=== PATIENT | male | born 1975 | race Caucasian/White ===

== ENCOUNTER 2021-08-15 08:06 | Emergency (ER) | payer OTHER ==
[~2021-08-15] VITALS: Ht 167.6 cm; Wt 85.7 kg
[~2021-08-15 08:06] MED LIST: CIPRO100 MG PO; KETO10TA2 PO; LEVSIN/SL0.125 MG SL; TAMS0.4C PO
[2021-08-15] MEDS ORDERED: ZITHROMAX500 MG PO (11:43)
[2021-08-15] MEDS ORDERED: TUSSI PRES-B L480 ML PO (11:43)
== END 2021-08-15 12:33 | disposition home or self-care (01) ==
LOC: ER 08:06
DX: B34.9 Viral infection, unspecified (principal); Z03.818 Encounter for observation for suspected exposure to other biological agents ruled out

== ENCOUNTER 2021-12-06 07:24 | Outpatient (CLI) | payer OTHER ==
[~2021-12-06 07:24] MED LIST changes: +TUSSI PRES-B L480 ML PO; +ZITHROMAX500 MG PO
== END 2021-12-06 07:35 | disposition home or self-care (01) ==
LOC: LAB 07:24
PROVIDERS: ATTEND Internal Medicine
DX: E55.9 Vitamin D deficiency, unspecified (principal); E78.2 Mixed hyperlipidemia; E63.9 Nutritional deficiency, unspecified

== ENCOUNTER 2022-01-26 10:46 | Outpatient (CLI) | payer OTHER | END 2022-01-26 10:53 | disposition home or self-care (01) | LOC: RAD 10:46 | PROVIDERS: ATTEND Physical Medicine & Rehabilitation | DX: M51.37 Other intervertebral disc degeneration, lumbosacral region (principal) ==

== ENCOUNTER 2022-03-03 04:21 | Emergency (ER) | payer OTHER ==
[~2022-03-03] VITALS: Ht 167.6 cm; Wt 81.6 kg
== END 2022-03-03 08:42 | disposition home or self-care (01) ==
LOC: ER 04:21
DX: U07.1 COVID-19 (principal); B34.9 Viral infection, unspecified

== ENCOUNTER 2022-04-13 06:26 | Outpatient (CLI) | payer OTHER | END 2022-04-13 06:27 | disposition home or self-care (01) | LOC: LAB 06:26 | PROVIDERS: ATTEND Internal Medicine | DX: D64.9 Anemia, unspecified (principal); E78.2 Mixed hyperlipidemia; E03.8 Other specified hypothyroidism; E11.9 Type 2 diabetes mellitus without complications; J40 Bronchitis, not specified as acute or chronic ==

== ENCOUNTER 2022-04-13 07:10 | Outpatient (CLI) | payer OTHER | END 2022-04-13 07:21 | disposition home or self-care (01) | LOC: SONOGRAMA 07:10 | PROVIDERS: ATTEND Internal Medicine | DX: R10.84 Generalized abdominal pain (principal) ==

== ENCOUNTER → 2022-08-10 | Emergency (ER) | payer OTHER ==
[~2022-08-10] VITALS: Ht 167.6 cm; Wt 81.6 kg
[~2022-08-10] MED LIST changes: +AMOX-CLAV 875-1 EACH PO
== END | disposition home or self-care (01) ==
LOC: ER 07:30
DX: B34.8 Other viral infections of unspecified site (principal); H10.9 Unspecified conjunctivitis; Z20.828 Contact with and (suspected) exposure to other viral communicable diseases

== ENCOUNTER 2022-09-24 07:00 | Emergency (ER) | payer OTHER ==
[~2022-09-24] VITALS: Ht 167.6 cm; Wt 81.6 kg
== END 2022-09-24 11:58 | disposition home or self-care (01) ==
LOC: ER 07:00
DX: R10.9 Unspecified abdominal pain (principal)

== ENCOUNTER 2022-10-05 06:12 | Outpatient (CLI) | payer OTHER | END 2022-10-05 09:15 | disposition home or self-care (01) | LOC: LAB 06:12 | DX: E78.2 Mixed hyperlipidemia (principal); E03.8 Other specified hypothyroidism; E11.9 Type 2 diabetes mellitus without complications; D64.9 Anemia, unspecified; C61 Malignant neoplasm of prostate ==

== ENCOUNTER 2023-04-07 06:23 | Outpatient (CLI) | payer OTHER | END 2023-04-07 06:25 | disposition home or self-care (01) | LOC: LAB 06:23 | PROVIDERS: ATTEND Internal Medicine | DX: D64.9 Anemia, unspecified (principal); C61 Malignant neoplasm of prostate; E78.2 Mixed hyperlipidemia; E03.8 Other specified hypothyroidism; E11.9 Type 2 diabetes mellitus without complications; N30.90 Cystitis, unspecified without hematuria ==

== ENCOUNTER 2023-10-13 19:35 | Emergency (ER) | payer OTHER ==
[~2023-10-13] VITALS: Ht 162.6 cm; Wt 83.9 kg
[2023-10-13] MEDS ORDERED: TAMS0.4C (19:50)
[2023-10-13 21:55] LABS: HEMATOCRIT 41.3 % (39.0-48.0); HEMOGLOBIN 14.3 g/dL (13-16.00); MEAN CELL VOLUME 87.7 fL (80.0-100.00); MEAN CORPUSCULAR HEMOGLOBIN 30.3 pg (27.00-32.0); MEAN CORPUSCULAR HGB CONC 34.5 g/dl (32.0-36.0); PLATELET COUNT 168 K/uL (150-450); RED BLOOD COUNT 4.71 M/uL (4.00-6.00); RED CELL DISTRIBUTION WIDTH 14.1 % (11.5-14.5)
== END 2023-10-13 22:25 | disposition home or self-care (01) ==
LOC: ER 19:36
DX: J06.9 Acute upper respiratory infection, unspecified (principal)

== ENCOUNTER 2023-12-03 06:12 | Outpatient (CLI) | payer OTHER ==
[~2023-12-03 06:12] MED LIST changes: +TAMS0.4C
[2023-12-03 07:35] LABS: PH,URINE 5.5 (5.0-8.0); URINE APPEARANCE Clear; URINE BILIRRUBIN Negative (NEGATIVE); URINE BLOOD Moderate; URINE COLOR Yellow; URINE GLUCOSE Negative (NEGATIVE); URINE LEUKOCYTE Negative; URINE NITRATE Negative; URINE PROTEIN Negative (NEGATIVE); URINE UROBILINOGEN 0.2 E.U./dl
[2023-12-03 07:39] LABS: URINE BACTERIA 23.9 uL (0.0-1933); URINE EPITHELIAL CELLS 4.3 uL (0.0-38.8); URINE RBC 44.9 uL (0.0-20.8); URINE WBC 7.7 uL (0.0-23.2)
[2023-12-03 07:39] LABS: HEMATOCRIT 42.8 % (39.0-48.0); HEMOGLOBIN 14.6 g/dL (13-16.00); MEAN CELL VOLUME 88.3 fL (80.0-100.00); MEAN CORPUSCULAR HEMOGLOBIN 30.2 pg (27.00-32.0); MEAN CORPUSCULAR HGB CONC 34.2 g/dl (32.0-36.0); PLATELET COUNT 180 K/uL (150-450); RED BLOOD COUNT 4.84 M/uL (4.00-6.00)
[2023-12-03 08:16] LABS: ALBUMIN 3.8 gm/dL (3.4-5.0); BILIRUBIN TOTAL 0.33 mg/dL (0.3-1.2); CHOL HDL RATIO 5.7 (0-5.0); CREATININE SERUM 0.91 mg/dL (0.70-1.30); GFR 88.92; GLOBULINA 3.1 G/DL (2.4-3.5); POTASSIUM 3.88 mEq/L (3.5-5.1); PROSTATIC SPECIFIC ANTIGEN 0.469 NG/ML (0.010-4.00); TOTAL PROTEIN 6.9 gm/dL (6.4-8.2); TSH 2.34 uIU/mL (0.358-3.74)
== END 2023-12-03 06:13 | disposition home or self-care (01) ==
LOC: LAB 06:12
PROVIDERS: ATTEND Internal Medicine
DX: C61 Malignant neoplasm of prostate (principal); E03.4 Atrophy of thyroid (acquired); E11.9 Type 2 diabetes mellitus without complications; D64.9 Anemia, unspecified

== ENCOUNTER 2024-01-22 08:09 | Emergency (ER) | payer OTHER ==
[~2024-01-22] VITALS: Ht 167.6 cm; Wt 81.6 kg
[2024-01-22 09:00] LABS: HEMATOCRIT 44.3 % (39.0-48.0); HEMOGLOBIN 15.2 g/dL (13-16.00); MEAN CELL VOLUME 87.1 fL (80.0-100.00); MEAN CORPUSCULAR HEMOGLOBIN 29.9 pg (27.00-32.0); MEAN CORPUSCULAR HGB CONC 34.4 g/dl (32.0-36.0); PLATELET COUNT 157 K/uL (150-450); RED BLOOD COUNT 5.09 M/uL (4.00-6.00); RED CELL DISTRIBUTION WIDTH 14.2 % (11.5-14.5)
[2024-01-22 09:24] LABS: ALBUMIN 4.1 gm/dL (3.4-5.0); BILIRUBIN TOTAL 0.7 mg/dL (0.3-1.2); CALCIUM 9.5 mg/dL (8.5-10.1); CREATININE SERUM 0.91 mg/dL (0.70-1.30); GFR 88.92; GLOBULINA 3.6 G/DL (2.4-3.5); POTASSIUM 4.11 mEq/L (3.5-5.1); TOTAL PROTEIN 7.7 gm/dL (6.4-8.2)
[2024-01-22 10:19] LABS: PH,URINE 6.5 (5.0-8.0); URINE APPEARANCE Clear; URINE BILIRRUBIN Negative (NEGATIVE); URINE BLOOD Moderate; URINE COLOR Yellow; URINE GLUCOSE Negative (NEGATIVE); URINE LEUKOCYTE Trace; URINE NITRATE Negative; URINE PROTEIN Negative (NEGATIVE)
[2024-01-22 10:24] LABS: URINE BACTERIA 26.4 uL (0.0-1933); URINE EPITHELIAL CELLS 2.4 uL (0.0-38.8); URINE RBC 77.6 uL (0.0-20.8); URINE WBC 3.3 uL (0.0-23.2)
[2024-01-22] MEDS ORDERED: CLINDAMYCIN PHOSPHATE 150 MG/ML (600mg) IV ONE (12:00)
== END 2024-01-22 14:29 | disposition home or self-care (01) ==
LOC: ER 08:10
PROVIDERS: Emergency Medicine
DX: L03.211 Cellulitis of face (principal)

== ENCOUNTER 2024-06-05 06:15 | Outpatient (CLI) | payer OTHER ==
[2024-06-05 07:13] LABS: HEMATOCRIT 44.8 % (39.0-48.0); HEMOGLOBIN 15.4 g/dL (13-16.00); MEAN CELL VOLUME 87.3 fL (80.0-100.00); MEAN CORPUSCULAR HGB CONC 34.4 g/dl (32.0-36.0); PLATELET COUNT 167 K/uL (150-450); RED BLOOD COUNT 5.13 M/uL (4.00-6.00); RED CELL DISTRIBUTION WIDTH 14.6 % (11.5-14.5)
[2024-06-05 07:21] LABS: URINE RBC 12.6 uL (0.0-20.8)
[2024-06-05 07:41] LABS: URINE APPEARANCE Clear; URINE BILIRRUBIN Negative (NEGATIVE); URINE BLOOD Small; URINE COLOR Yellow; URINE GLUCOSE Negative (NEGATIVE); URINE KETONE Negative (NEGATIVE); URINE LEUKOCYTE Negative; URINE NITRATE Negative; URINE PROTEIN Negative (NEGATIVE); URINE UROBILINOGEN 0.2 E.U./dl
[2024-06-05 07:55] LABS: ALBUMIN 3.9 gm/dL (3.4-5.0); BILIRUBIN TOTAL 0.25 mg/dL (0.3-1.2); CALCIUM 9.6 mg/dL (8.5-10.1); CHOL HDL RATIO 7.9 (0-5.0); CREATININE SERUM 0.86 mg/dL (0.70-1.30); GFR 94.91; GLOBULINA 3.6 G/DL (2.4-3.5); POTASSIUM 4.23 mEq/L (3.5-5.1); TOTAL PROTEIN 7.5 gm/dL (6.4-8.2); TSH 2.2 uIU/mL (0.358-3.74)
[2024-06-05 07:57] LABS: URINE CAST 0.15 uL (0.0-1.40); URINE EPITHELIAL CELLS 1.2 uL (0.0-38.8)
== END 2024-06-05 06:16 | disposition home or self-care (01) ==
LOC: LAB 06:15
PROVIDERS: ATTEND Internal Medicine
DX: E78.2 Mixed hyperlipidemia (principal); E11.9 Type 2 diabetes mellitus without complications; D69.9 Hemorrhagic condition, unspecified

== ENCOUNTER → 2024-11-17 06:12 | Outpatient (CLI) | payer OTHER ==
[2024-11-17 06:55] LABS: HEMATOCRIT 41.8 % (39.0-48.0); HEMOGLOBIN 14.7 g/dL (13-16.00); MEAN CELL VOLUME 87.5 fL (80.0-100.00); MEAN CORPUSCULAR HEMOGLOBIN 30.8 pg (27.00-32.0); MEAN CORPUSCULAR HGB CONC 35.2 g/dl (32.0-36.0); PLATELET COUNT 164 K/uL (150-450); RED BLOOD COUNT 4.78 M/uL (4.00-6.00); RED CELL DISTRIBUTION WIDTH 13.9 % (11.5-14.5)
[2024-11-17 07:01] LABS: PH,URINE 5.5 (5.0-8.0); URINE APPEARANCE Clear; URINE BILIRRUBIN Negative (NEGATIVE); URINE BLOOD Small; URINE COLOR Yellow; URINE GLUCOSE Negative (NEGATIVE); URINE KETONE Negative (NEGATIVE); URINE LEUKOCYTE Negative; URINE NITRATE Negative; URINE PROTEIN Trace (NEGATIVE); URINE UROBILINOGEN 0.2 E.U./dl
[2024-11-17 07:03] LABS: URINE BACTERIA 25.7 uL (0.0-1933); URINE EPITHELIAL CELLS 5.3 uL (0.0-38.8); URINE RBC 26.3 uL (0.0-20.8); URINE WBC 10.4 uL (0.0-23.2)
[2024-11-17 07:23] LABS: URINE CAST 1.03 uL (0.0-1.40)
[2024-11-17 07:25] LABS: URINE CRYSTALS MODERATE /HPF
[2024-11-17 07:27] LABS: ALBUMIN 3.8 gm/dL (3.4-5.0); BILIRUBIN TOTAL 0.37 mg/dL (0.3-1.2); CALCIUM 9.2 mg/dL (8.5-10.1); CHOL HDL RATIO 3.7 (0-5.0); CREATININE SERUM 0.96 mg/dL (0.70-1.30); GFR 83.25; GLOBULINA 3.1 G/DL (2.4-3.5); POTASSIUM 3.78 mEq/L (3.5-5.1); PROSTATIC SPECIFIC ANTIGEN 0.712 NG/ML (0.010-4.00); T4 TOTAL 7.49 UG/DL (4.5-12.1); TOTAL PROTEIN 6.9 gm/dL (6.4-8.2); TSH 2.72 uIU/mL (0.358-3.74)
[2024-11-17 11:18] LABS: T3 TOTAL 1.49 ng/ml (0.846-2.02); VITAMIN D3 25 HYDROXY 43.14 ng/ml (30-120)
[2024-11-18 12:05] LABS: ob NEGATIVE (NEGATIVE)
== END | disposition home or self-care (01) ==
LOC: LAB 06:12
PROVIDERS: ATTEND Internal Medicine
DX: E03.9 Hypothyroidism, unspecified (principal); I10 Essential (primary) hypertension; Z01.810 Encounter for preprocedural cardiovascular examination; E78.9 Disorder of lipoprotein metabolism, unspecified; E55.9 Vitamin D deficiency, unspecified; E66.89 Other obesity not elsewhere classified; Z12.11 Encounter for screening for malignant neoplasm of colon

== ENCOUNTER 2024-11-17 07:04 | Outpatient (CLI) | payer OTHER | END 2024-11-17 07:08 | disposition home or self-care (01) | LOC: RAD 07:04 | PROVIDERS: ATTEND Internal Medicine | DX: I10 Essential (primary) hypertension (principal); Z01.810 Encounter for preprocedural cardiovascular examination; E03.9 Hypothyroidism, unspecified; E78.9 Disorder of lipoprotein metabolism, unspecified; E55.9 Vitamin D deficiency, unspecified; Z12.11 Encounter for screening for malignant neoplasm of colon ==